=== PATIENT | female | born 1985 | race Two or more races ===

== ENCOUNTER 2022-03-09 04:50 | Inpatient (IN) | payer MEDICAID ==
[~2022-03-09] VITALS: Ht 170.2 cm; Wt 109.4 kg
[~2022-03-09 04:50] MED LIST: IBUP600T27 PO; LEVO500T31 PO; LISI-716 PO; METOPROLOL PO; OYST500T29 PO; POTA-220 PO
[2022-03-09] MEDS ORDERED: SODIUM CHLORIDE 0.9% 1,000 ML IV ONE ×2 (05:15→06:30)
[2022-03-09 05:38] LABS: Basophils # (auto) 0.1 10 ^3/uL (0-0.2); Basophils % (auto) 0.4 % (0.0-2.0); Eosinophils # (auto) 0.1 10 ^3/uL (0-0.8); Eosinophils % (auto) 0.5 % (0.0-7.0); Hematocrit 36.9 % (36.0-46.0); Hemoglobin 12.4 g/dL (12.2-16.2); Lymphocytes # (auto) 1.5 10 ^3/uL (0.4-5.4); Lymphocytes % (auto) 11.8 % (10.0-50.0); Mean Corpuscular Hemoglobin 26.8 pg (28.0-32.0); Mean Corpuscular Hgb Conc. 33.6 g/dL (32.0-36.0); Mean Corpuscular Volume 79.7 fL (80.0-100.0); Monocytes # (auto) 0.4 10 ^3/uL (0-1.3); Neutrophils # (auto) 10.4 10 ^3/uL (1.6-8.6); Neutrophils % (auto) 84.3 % (37.0-80.0); Red Blood Cells 4.63 10^6/uL (4.0-5.20); Red Cell Distribution Width 13.8 % (11.8-14.3); White Blood Cell 12.4 10^3/uL (4.4-10.8)
[2022-03-09 05:51] LABS: Partial Thromboplastin Time 22.4 sec (24.6-33.4)
[2022-03-09 05:59] LABS: Albumin 3.4 g/dL (3.4-5.0); BUN/Creatinine Ratio 25.4; Calcium 8.8 mg/dL (8.5-10.1); Magnesium 2.1 mg/dL (1.6-2.6); Potassium 3.7 mmol/L (3.5-5.1)
[2022-03-09 06:01] LABS: Lactic Acid w/Reflex 4.1 mmol/L (0.4-2.0)
[2022-03-09 06:02] LABS: Bilirubin, Total 0.4 mg/dL (0.2-1.0); Total Protein 6.6 g/dL (6.4-8.2)
[2022-03-09] MEDS ORDERED: PHENYLEPHRINE HCL 0.5 % NASAL SPRAY 15ML ONE (06:15)
[2022-03-09] MEDS ORDERED: OXYMETAZOLINE HCL 0.05 % NASAL SPRAY 15ML EACHNOSTRI ONE (06:15)
[2022-03-09] MEDS ORDERED: PIPERACILLIN-TAZOB 3.375GM 100 ML IV ONE (06:30)
[2022-03-09] MEDS ORDERED: DEXTROSE (50%) 50ML SYRG IV PRN (09:45)
[2022-03-09] MEDS ORDERED: DOCUSATE SOD 100 MG CAP PO PRN (09:45)
[2022-03-09] MEDS ORDERED: SORE THROAT SPRAY 6OZ BOTTLE MT PRN (09:45)
[2022-03-09] MEDS ORDERED: MORPHINE SULFATE INJ 2 MG/ml SYRG IV PRN (09:45)
[2022-03-09 11:01] LABS: Basophils # (auto) 0 10 ^3/uL (0-0.2); Eosinophils # (auto) 0 10 ^3/uL (0-0.8); Eosinophils % (auto) 0.1 % (0.0-7.0); Lymphocytes # (auto) 0.8 10 ^3/uL (0.4-5.4); Nucleated Red Blood Cells % 0.1 %
[2022-03-09] MEDS: PANTOPRAZOLE 40 MG/10 ML VIAL INJ IV SCH (11:02)
[2022-03-09 11:03] LABS: Basophils % (auto) 0.3 % (0.0-2.0); Hematocrit 34.1 % (36.0-46.0); Hemoglobin 11.7 g/dL (12.2-16.2); Lymphocytes % (auto) 6.4 % (10.0-50.0); Mean Corpuscular Hemoglobin 27.3 pg (28.0-32.0); Mean Corpuscular Hgb Conc. 34.4 g/dL (32.0-36.0); Mean Corpuscular Volume 79.2 fL (80.0-100.0); Monocytes # (auto) 0.4 10 ^3/uL (0-1.3); Monocytes % (auto) 3.4 % (0.0-12.0); Neutrophils # (auto) 11.2 10 ^3/uL (1.6-8.6); Neutrophils % (auto) 89.8 % (37.0-80.0); Red Blood Cells 4.31 10^6/uL (4.0-5.20); Red Cell Distribution Width 13.8 % (11.8-14.3); White Blood Cell 12.5 10^3/uL (4.4-10.8)
[2022-03-09] MEDS: SODIUM CHLORIDE 0.9% 1,000 ML IV SCH ×2 (11:04→18:32)
[2022-03-09] MEDS: InsuLIN REG 1unit/0.01ml Soln (100units/ml) SC SCH ×3 (11:18→23:11)
[2022-03-09] MEDS: ACCU-CHEK COMFORT CURVE STRIP VI SCH ×3 (11:18→23:11)
[2022-03-09 13:07] LABS: Hematocrit 32.8 % (36.0-46.0); Hemoglobin 11.1 g/dL (12.2-16.2)
[2022-03-09 15:22] LABS: Urine Bacteria NONE SEEN /hpf (None Seen); Urine Blood 3+ /uL (Negative); Urine Specific Gravity 1.021 (1.001-1.035); Urine WBC 1 /hpf (0 - 5)
[2022-03-09] MEDS: PIPERACILLIN-TAZOB 3.375GM 100 ML IV SCH ×2 (16:52→23:11)
[2022-03-09 18:29] LABS: Hematocrit 29.9 % (36.0-46.0); Hemoglobin 10.3 g/dL (12.2-16.2)
[2022-03-09] MEDS ORDERED: LEVO200T7 PO (21:49)
[2022-03-09 22:00] VITALS: BP 134/96
[2022-03-10 01:28] LABS: Hematocrit 29.5 % (36.0-46.0); Hemoglobin 10.3 g/dL (12.2-16.2)
[2022-03-10 05:00] VITALS: BP 148/83
[2022-03-10] MEDS: PIPERACILLIN-TAZOB 3.375GM 100 ML IV SCH ×2 (05:21→09:00)
[2022-03-10] MEDS: ACCU-CHEK COMFORT CURVE STRIP VI SCH (06:20)
[2022-03-10] MEDS: InsuLIN REG 1unit/0.01ml Soln (100units/ml) SC SCH (06:20)
[2022-03-10 07:34] LABS: Basophils # (auto) 0 10 ^3/uL (0-0.2); Basophils % (auto) 0.2 % (0.0-2.0); Eosinophils # (auto) 0.1 10 ^3/uL (0-0.8); Eosinophils % (auto) 0.9 % (0.0-7.0); Hematocrit 30.9 % (36.0-46.0); Hemoglobin 10.6 g/dL (12.2-16.2); Lymphocytes # (auto) 2.2 10 ^3/uL (0.4-5.4); Lymphocytes % (auto) 26.8 % (10.0-50.0); Mean Corpuscular Hemoglobin 27.5 pg (28.0-32.0); Mean Corpuscular Hgb Conc. 34.3 g/dL (32.0-36.0); Monocytes # (auto) 0.5 10 ^3/uL (0-1.3); Neutrophils # (auto) 5.5 10 ^3/uL (1.6-8.6); Neutrophils % (auto) 66.1 % (37.0-80.0); Nucleated Red Blood Cells % 0.1 %; Red Blood Cells 3.86 10^6/uL (4.0-5.20); White Blood Cell 8.3 10^3/uL (4.4-10.8)
[2022-03-10 07:40] LABS: Calcium 7.7 mg/dL (8.5-10.1); Potassium 3.1 mmol/L (3.5-5.1)
[2022-03-10 07:43] LABS: BUN/Creatinine Ratio 18.1
[2022-03-10 07:45] LABS: Bilirubin, Total 0.4 mg/dL (0.2-1.0); Total Protein 6.2 g/dL (6.4-8.2)
[2022-03-10 08:00] VITALS: BP 157/103
[2022-03-10] MEDS: PANTOPRAZOLE 40 MG/10 ML VIAL INJ IV SCH (08:40)
[2022-03-10 08:54] VITALS: BP 176/94
[2022-03-10] MEDS: SODIUM CHLORIDE 0.9% 1,000 ML IV SCH (10:13)
[2022-03-10] MEDS ORDERED: HYDR25TA4 PO (10:49)
[2022-03-10] MEDS ORDERED: ALBUAER3 IN (10:54)
[2022-03-10 13:30] VITALS: BP 168/90
[2022-03-10] MEDS ORDERED: amLODIPine BESYLATE 5 MG TAB PO ONE (15:15)
[2022-03-10] MEDS ORDERED: AMOXICILLIN TRIHYDRATE 250 MG CAP PO ONE (15:15)
[2022-03-10] MEDS ORDERED: POTASSIUM EFFERVESENT TAB 25 MEQ GT ONE (15:15)
[2022-03-10 16:30] VITALS: BP 179/100
[2022-03-10] MEDS: AMOXICILLIN TRIHYDRATE 250 MG CAP PO SCH (21:32)
[2022-03-10] MEDS: cloNIDine HCL 0.1 MG TAB PO PRN (21:47)
[2022-03-10 22:00] VITALS: BP 183/96
[2022-03-11] VITALS (7 sets, daily range): BP systolic 144–170; BP diastolic 77–108
[2022-03-11] MEDS: AMOXICILLIN TRIHYDRATE 250 MG CAP PO SCH ×3 (05:49→22:46)
[2022-03-11 07:04] LABS: Basophils # (auto) 0 10 ^3/uL (0-0.2); Basophils % (auto) 0.4 % (0.0-2.0); Eosinophils # (auto) 0.1 10 ^3/uL (0-0.8); Eosinophils % (auto) 1.6 % (0.0-7.0); Hematocrit 31.8 % (36.0-46.0); Hemoglobin 10.6 g/dL (12.2-16.2); Lymphocytes # (auto) 1.7 10 ^3/uL (0.4-5.4); Lymphocytes % (auto) 25.3 % (10.0-50.0); Mean Corpuscular Hgb Conc. 33.3 g/dL (32.0-36.0); Mean Corpuscular Volume 81.1 fL (80.0-100.0); Monocytes # (auto) 0.4 10 ^3/uL (0-1.3); Monocytes % (auto) 6.2 % (0.0-12.0); Neutrophils # (auto) 4.3 10 ^3/uL (1.6-8.6); Neutrophils % (auto) 66.5 % (37.0-80.0); Red Blood Cells 3.93 10^6/uL (4.0-5.20); White Blood Cell 6.5 10^3/uL (4.4-10.8)
[2022-03-11 07:18] LABS: Potassium 3.3 mmol/L (3.5-5.1)
[2022-03-11 07:28] LABS: Albumin 3.4 g/dL (3.4-5.0); BUN/Creatinine Ratio 14.6; Bilirubin, Total 0.4 mg/dL (0.2-1.0); Calcium 8.2 mg/dL (8.5-10.1); Total Protein 6.8 g/dL (6.4-8.2)
[2022-03-11] MEDS ORDERED: POTASSIUM EFFERVESENT TAB 25 MEQ PO ONE (09:30)
[2022-03-11] MEDS: amLODIPine BESYLATE 5 MG TAB PO SCH (12:33)
[2022-03-11] MEDS: LISINOPRIL 20 MG TAB PO SCH (16:54)
[2022-03-11] MEDS ORDERED: LORazepam 2MG/ML-1ML VIAL IV PRN (17:15)
[2022-03-11] MEDS ORDERED: IOHEXOL 350 MG/ML 100ML IJ ONE (17:25)
[2022-03-11] MEDS ORDERED: LISINOPRIL 20 MG TAB PO SCH (22:00)
[2022-03-11] MEDS: TOPIRAMATE 25 MG TAB PO SCH (22:47)
[2022-03-12] VITALS (7 sets, daily range): BP systolic 120–165; BP diastolic 73–104
[2022-03-12] MEDS: ONDANSETRON HCL 4 MG/2 ML VIAL IV PRN ×2 (06:29→10:28)
[2022-03-12] MEDS: AMOXICILLIN TRIHYDRATE 250 MG CAP PO SCH ×3 (06:29→21:48)
[2022-03-12 08:10] LABS: Basophils # (auto) 0 10 ^3/uL (0-0.2); Eosinophils # (auto) 0.1 10 ^3/uL (0-0.8); Neutrophils # (auto) 3.3 10 ^3/uL (1.6-8.6); Red Cell Distribution Width 13.9 % (11.8-14.3)
[2022-03-12 08:14] LABS: Basophils % (auto) 0.5 % (0.0-2.0); Eosinophils % (auto) 2.1 % (0.0-7.0); Hematocrit 33.4 % (36.0-46.0); Hemoglobin 11.2 g/dL (12.2-16.2); Lymphocytes # (auto) 1.6 10 ^3/uL (0.4-5.4); Lymphocytes % (auto) 30.3 % (10.0-50.0); Mean Corpuscular Hgb Conc. 33.6 g/dL (32.0-36.0); Mean Corpuscular Volume 80.4 fL (80.0-100.0); Monocytes # (auto) 0.4 10 ^3/uL (0-1.3); Monocytes % (auto) 6.5 % (0.0-12.0); Neutrophils % (auto) 60.6 % (37.0-80.0); Red Blood Cells 4.15 10^6/uL (4.0-5.20); White Blood Cell 5.4 10^3/uL (4.4-10.8)
[2022-03-12 08:44] LABS: Potassium 3.8 mmol/L (3.5-5.1)
[2022-03-12 08:58] LABS: Albumin 3.8 g/dL (3.4-5.0); BUN/Creatinine Ratio 17.4; Bilirubin, Total 0.4 mg/dL (0.2-1.0); Calcium 8.2 mg/dL (8.5-10.1)
[2022-03-12] MEDS: PHENYLEPHRINE HCL 0.5 % NASAL SPRAY 15ML PRN ×2 (09:36→19:47)
[2022-03-12] MEDS: amLODIPine BESYLATE 5 MG TAB PO SCH (09:47)
[2022-03-12] MEDS: LISINOPRIL 20 MG TAB PO SCH (09:47)
[2022-03-12] MEDS: TOPIRAMATE 25 MG TAB PO SCH ×2 (09:47→21:48)
[2022-03-12] MEDS: METOCLOPRAMIDE HCL 5MG/ml INJ 2ml VIAL IV PRN (11:39)
[2022-03-12] MEDS ORDERED: POLYETHYLENE GLYCOL 17 GM PWDR PO PRN (16:45)
[2022-03-12] MEDS ORDERED: GLYCERIN ADULT RECTAL SUPP PR PRN (16:45)
[2022-03-12] MEDS ORDERED: POLYETHYLENE GLYCOL 17 GM PWDR PO ONE (16:45)
[2022-03-12] MEDS: SENNA 8.6 MG TAB PO SCH (21:48)
[2022-03-13] MEDS: PHENYLEPHRINE HCL 0.5 % NASAL SPRAY 15ML PRN ×2 (00:17→06:35)
[2022-03-13] MEDS: METOCLOPRAMIDE HCL 5MG/ml INJ 2ml VIAL IV PRN ×2 (00:17→11:37)
[2022-03-13 05:00] VITALS: BP 149/86
[2022-03-13] MEDS: AMOXICILLIN TRIHYDRATE 250 MG CAP PO SCH ×3 (06:28→22:48)
[2022-03-13 06:54] LABS: Basophils # (auto) 0 10 ^3/uL (0-0.2); Basophils % (auto) 0.6 % (0.0-2.0); Eosinophils # (auto) 0.1 10 ^3/uL (0-0.8); Eosinophils % (auto) 1.1 % (0.0-7.0); Hematocrit 29.7 % (36.0-46.0); Lymphocytes # (auto) 2.2 10 ^3/uL (0.4-5.4); Lymphocytes % (auto) 32.1 % (10.0-50.0); Mean Corpuscular Hemoglobin 27.1 pg (28.0-32.0); Mean Corpuscular Hgb Conc. 33.8 g/dL (32.0-36.0); Mean Corpuscular Volume 80.1 fL (80.0-100.0); Monocytes # (auto) 0.4 10 ^3/uL (0-1.3); Monocytes % (auto) 5.1 % (0.0-12.0); Neutrophils # (auto) 4.2 10 ^3/uL (1.6-8.6); Neutrophils % (auto) 61.1 % (37.0-80.0); Nucleated Red Blood Cells % 0.1 %; Red Blood Cells 3.71 10^6/uL (4.0-5.20); Red Cell Distribution Width 13.9 % (11.8-14.3); White Blood Cell 6.9 10^3/uL (4.4-10.8)
[2022-03-13 07:24] LABS: Albumin 3.3 g/dL (3.4-5.0); Potassium 4.2 mmol/L (3.5-5.1)
[2022-03-13 07:27] LABS: BUN/Creatinine Ratio 24.5; Calcium 8.7 mg/dL (8.5-10.1)
[2022-03-13 07:34] LABS: Bilirubin, Total 0.3 mg/dL (0.2-1.0); Total Protein 6.4 g/dL (6.4-8.2)
[2022-03-13 08:46] VITALS: BP 129/81
[2022-03-13] MEDS: amLODIPine BESYLATE 5 MG TAB PO SCH (11:23)
[2022-03-13] MEDS: TOPIRAMATE 25 MG TAB PO SCH ×2 (11:24→22:42)
[2022-03-13] MEDS: LISINOPRIL 20 MG TAB PO SCH (11:24)
[2022-03-13 12:31] VITALS: BP 129/89
[2022-03-13] MEDS ORDERED: SODIUM CHLORIDE 0.9% 1,000 ML IV ONE (14:45)
[2022-03-13] MEDS ORDERED: LIDOCAINE 2% JELLY 11ml (GLYDO) ONE (14:56)
[2022-03-13] MEDS: SODIUM CHLORIDE 0.9% 1,000 ML IV SCH ×2 (15:23→22:51)
[2022-03-13 16:01] LABS: Basophils # (auto) 0 10 ^3/uL (0-0.2); Basophils % (auto) 0.4 % (0.0-2.0); Eosinophils # (auto) 0.1 10 ^3/uL (0-0.8); Eosinophils % (auto) 0.5 % (0.0-7.0); Hematocrit 27.1 % (36.0-46.0); Lymphocytes # (auto) 2.3 10 ^3/uL (0.4-5.4); Lymphocytes % (auto) 19.4 % (10.0-50.0); Mean Corpuscular Hgb Conc. 33.1 g/dL (32.0-36.0); Mean Corpuscular Volume 81.6 fL (80.0-100.0); Monocytes # (auto) 0.5 10 ^3/uL (0-1.3); Monocytes % (auto) 3.8 % (0.0-12.0); Neutrophils % (auto) 75.9 % (37.0-80.0); Nucleated Red Blood Cells % 0.1 %; Red Blood Cells 3.32 10^6/uL (4.0-5.20); Red Cell Distribution Width 13.9 % (11.8-14.3); White Blood Cell 11.9 10^3/uL (4.4-10.8)
[2022-03-13 16:33] VITALS: BP 117/65
[2022-03-13] MEDS: ONDANSETRON HCL 4 MG/2 ML VIAL IV PRN (17:24)
[2022-03-13 22:00] VITALS: BP 130/71
[2022-03-13] MEDS: SENNA 8.6 MG TAB PO SCH (22:41)
[2022-03-14] MEDS: ONDANSETRON HCL 4 MG/2 ML VIAL IV PRN (01:41)
[2022-03-14] MEDS ORDERED: HYDROcodone-ACET 5/325MG TAB PO ONE ×2 (03:30→10:00)
[2022-03-14 05:00] VITALS: BP 166/95
[2022-03-14] MEDS: AMOXICILLIN TRIHYDRATE 250 MG CAP PO SCH ×3 (05:21→21:50)
[2022-03-14] MEDS: cloNIDine HCL 0.1 MG TAB PO PRN (05:33)
[2022-03-14 06:27] LABS: Eosinophils # (auto) 0.1 10 ^3/uL (0-0.8); Lymphocytes # (auto) 2.3 10 ^3/uL (0.4-5.4); Monocytes # (auto) 0.5 10 ^3/uL (0-1.3)
[2022-03-14 06:30] LABS: Basophils # (auto) 0 10 ^3/uL (0-0.2); Basophils % (auto) 0.4 % (0.0-2.0); Eosinophils % (auto) 0.9 % (0.0-7.0); Hematocrit 24.3 % (36.0-46.0); Hemoglobin 7.8 g/dL (12.2-16.2); Mean Corpuscular Hgb Conc. 32.2 g/dL (32.0-36.0); Mean Corpuscular Volume 83.6 fL (80.0-100.0); Monocytes % (auto) 4.7 % (0.0-12.0); Neutrophils # (auto) 7.2 10 ^3/uL (1.6-8.6); Red Blood Cells 2.91 10^6/uL (4.0-5.20); Red Cell Distribution Width 14.5 % (11.8-14.3); White Blood Cell 10.2 10^3/uL (4.4-10.8)
[2022-03-14 07:22] LABS: Potassium 3.9 mmol/L (3.5-5.1)
[2022-03-14 07:41] LABS: BUN/Creatinine Ratio 30.6; Calcium 8.2 mg/dL (8.5-10.1)
[2022-03-14 07:43] LABS: Bilirubin, Total 0.3 mg/dL (0.2-1.0); Total Protein 6.2 g/dL (6.4-8.2)
[2022-03-14 08:50] VITALS: BP 129/79
[2022-03-14] MEDS: SODIUM CHLORIDE 0.9% 1,000 ML IV SCH ×2 (10:45→21:50)
[2022-03-14] MEDS ORDERED: SODIUM CHLORIDE 0.9% 1,000 ML IV ONE (11:00)
[2022-03-14] MEDS: TOPIRAMATE 25 MG TAB PO SCH ×2 (11:05→21:50)
[2022-03-14] MEDS: LISINOPRIL 20 MG TAB PO SCH (11:05)
[2022-03-14] MEDS: amLODIPine BESYLATE 5 MG TAB PO SCH (11:06)
[2022-03-14 13:00] VITALS: BP_SYST 142; BP_SYST 166; BP_DIAS 106; BP_DIAS 89
[2022-03-14] MEDS: HYDROcodone-ACET 5/325MG TAB PO PRN ×2 (14:49→19:59)
[2022-03-14 17:16] VITALS: BP 142/89
[2022-03-14] MEDS: FERROUS SULFATE 325mg EC TAB PO SCH (18:33)
[2022-03-14] MEDS: SENNA 8.6 MG TAB PO SCH (21:50)
[2022-03-14 22:00] VITALS: BP 157/92
[2022-03-15] MEDS: cloNIDine HCL 0.1 MG TAB PO PRN (03:27)
[2022-03-15 03:30] VITALS: BP 180/95
[2022-03-15] MEDS: HYDROcodone-ACET 5/325MG TAB PO PRN (04:39)
[2022-03-15 05:00] VITALS: BP 155/97
[2022-03-15] MEDS: SODIUM CHLORIDE 0.9% 1,000 ML IV SCH (05:48)
[2022-03-15] MEDS: AMOXICILLIN TRIHYDRATE 250 MG CAP PO SCH ×2 (05:48→13:41)
[2022-03-15 06:10] LABS: Basophils # (auto) 0 10 ^3/uL (0-0.2); Eosinophils # (auto) 0.1 10 ^3/uL (0-0.8); Lymphocytes # (auto) 2.2 10 ^3/uL (0.4-5.4); Lymphocytes % (auto) 20.4 % (10.0-50.0); Monocytes # (auto) 0.5 10 ^3/uL (0-1.3)
[2022-03-15 06:13] LABS: Basophils % (auto) 0.1 % (0.0-2.0); Hematocrit 23.6 % (36.0-46.0); Hemoglobin 7.7 g/dL (12.2-16.2); Mean Corpuscular Hemoglobin 26.9 pg (28.0-32.0); Mean Corpuscular Hgb Conc. 32.8 g/dL (32.0-36.0); Neutrophils # (auto) 7.9 10 ^3/uL (1.6-8.6); Neutrophils % (auto) 73.5 % (37.0-80.0); Red Blood Cells 2.88 10^6/uL (4.0-5.20); Red Cell Distribution Width 14.2 % (11.8-14.3); White Blood Cell 10.8 10^3/uL (4.4-10.8)
[2022-03-15 06:32] LABS: Albumin 3.1 g/dL (3.4-5.0); BUN/Creatinine Ratio 14.6; Calcium 8.2 mg/dL (8.5-10.1); Potassium 3.8 mmol/L (3.5-5.1)
[2022-03-15 06:35] LABS: Bilirubin, Total 0.3 mg/dL (0.2-1.0); Total Protein 6.5 g/dL (6.4-8.2)
[2022-03-15] MEDS: amLODIPine BESYLATE 5 MG TAB PO SCH (08:19)
[2022-03-15] MEDS: LISINOPRIL 20 MG TAB PO SCH (08:19)
[2022-03-15] MEDS: FERROUS SULFATE 325mg EC TAB PO SCH (08:19)
[2022-03-15] MEDS: TOPIRAMATE 25 MG TAB PO SCH (08:20)
[2022-03-15 08:46] VITALS: BP 140/83
[2022-03-15] MEDS ORDERED: TOPI25TA84 PO (10:55)
[2022-03-15] MEDS ORDERED: FER325T PO (10:55)
[2022-03-15] MEDS ORDERED: SODIUM CHLORIDE 0.9% 1,000 ML IV ONE (11:45)
[2022-03-15 12:58] VITALS: BP 90/51
[2022-03-15 16:07] VITALS: BP 140/83
[2022-03-15 17:00] VITALS: BP 133/80
== END 2022-03-15 17:55 | disposition home or self-care (01) | DRG 115 ==
LOC: ER 04:50 → EDBD 04:50 → OVERFLOW 09:36 → WEST WING 20:57 → TELE-WESTW 03-13 14:46
PROVIDERS: ADMIT Nurse Practitioner Family; ATTEND Student in an Organized Health Care Education/Training Program
DX: R04.0 Epistaxis (principal); N17.9 Acute kidney failure, unspecified; I95.89 Other hypotension; E87.21 Acute metabolic acidosis; D62 Acute posthemorrhagic anemia; E86.0 Dehydration; E11.65 Type 2 diabetes mellitus with hyperglycemia; D50.9 Iron deficiency anemia, unspecified; E03.9 Hypothyroidism, unspecified; I10 Essential (primary) hypertension; G43.B0 Ophthalmoplegic migraine, not intractable; Z20.822 Contact with and (suspected) exposure to COVID-19; E66.9 Obesity, unspecified; E86.1 Hypovolemia; K59.00 Constipation, unspecified; N83.209 Unspecified ovarian cyst, unspecified side; Z79.899 Other long term (current) drug therapy; Z82.49 Family history of ischemic heart disease and other diseases of the circulatory system; Z83.3 Family history of diabetes mellitus; Z68.39 Body mass index [BMI] 39.0-39.9, adult
CPT/HCPCS: 36415; 70496; 70551; 71045; 80053; 81001; 82962; 83036; 83605; 83615; 83735; 84443; 84484; 84702; 85014; 85018; 85025; 85610; 85730; 86850; 86900; 86901; 87040; 87426; 87804; 87880; 93005; 93306; 95819; 96361; 96365; 96375; 99291; C9113; G0378; J2405; J2543